=== PATIENT | male | born 1965 | race Caucasian/White ===

== ENCOUNTER 2017-09-06 05:55 | Day surgery (SDC) | payer OTHER ==
--- NOTE | 2017-09-05 17:48 | GHP ---
[f rep st] PREOP HISTORY AND PHYSICAL ADMISSION DIAGNOSIS: Left ureteral calculus. HISTORY OF PRESENT ILLNESS: This is a 52-year-old gentleman who had been seen originally in [facility] weeks ago and was noted to have an 8+ mm stone in the left mid ureter and he was discharged ho ms and came home and then had a repeat CAT [place] that showed he had a similar stone with hydronephrosis. He has denies any recent nausea, vomiting, or fevers and he has h ad a stone in the past the that he spontaneously passed, he thinks. PAST MEDICAL HISTORY: Positive for hypercholesterolemia, hydronephrosis, kidney stones. SURGICAL HISTORY: Knee surgery. MEDICATIONS: Atorvastatin, citalopram. ALLERGIES: Demerol, erythromycin, penicillin. FAMILY HISTORY: Heart disease. SOCIAL HISTORY: Alcohol consumption is noted. Former smoker. REVIEW OF SYSTEMS: Negative cardiac, respiratory, GI and endocrine. PHYSICAL EXAMINATION: VITAL SIGNS: Stable. CHEST: Clear. HEART: Regular rate and rhythm. ABDOM EN: Normal, no organomegaly, rebound or guarding. LOWER EXTREMITIES: Normal. I have reviewed his CAT scan and his laboratory values with him. He has mild right-sided nephrolithi asis. He has left ureterolithiasis with hydronephrosis. He also has atherosclerotic vascular diseas e based on the CAT scan findings and he has asymptomatic diverticulosis of the sigmoid colon. At the present time, he is admitted for ureteroscopic treatment of the stone. Indication, complications, o ptions have been discussed. Written and verbal consent have been obtained and he is admitted for the above procedure. /[id number]/MODL
[2017-09-06] MEDS ORDERED: LR 1,000 ML IV ONE (06:21)
[2017-09-06] MEDS ORDERED: KETOROLAC 30 MG/1 ML SDV ONE (06:51)
[2017-09-06] MEDS ORDERED: ONDANSETRON 4 MG/2 ML VIAL ONE (06:52)
[2017-09-06] MEDS ORDERED: PROPOFOL 200 MG/20 ML VIAL ONE (06:52)
[2017-09-06] MEDS ORDERED: fentaNYL 100 MCG/2 ML INJ ONE (06:52)
[2017-09-06] MEDS ORDERED: MIDAZOLAM 2 MG/2 ML VIAL ONE (06:52)
[2017-09-06] MEDS ORDERED: DEXAMETHASONE 4 MG/ML VIAL ONE (06:53)
[2017-09-06] MEDS ORDERED: IOPAMIDOL (ISOVUE-300) 150 ML BTL ONE (07:04)
[2017-09-06] MEDS ORDERED: ceFAZolin 2 GM/SWFI 2 GM/20 ML SYR IVP ONE (07:04)
--- NOTE | 2017-09-06 07:04 | PDHPUP ---
History & Physical Update H&P update statement: This history and physical update is based on an assessment of the patient which was completed after admission or registration (within 24 hours), but prior to the surgery/procedure. H&P update: H&P reviewed & patient examined, no change in patient's condition since H&P completed
[2017-09-06] MEDS ORDERED: LIDOCAINE 2% JELLY 20 ML (UROJECT) ONE (07:05)
[2017-09-06] MEDS ORDERED: BUPIVACAINE 0.25% 30 ML SDV ONE (07:13)
--- NOTE | 2017-09-06 07:16 | PDANEPAE ---
ANE History of Present Illness 52 yerar old male with PMH sigificant for Left kidney stone and hyperlipidemia. Otherwise healthy. He has had a small productive cough with no fever the last week. He does not smoke. He has had anesthesia in the past for right shoulder and knee surgery without complications. NPO appropriate, solids 19:00 and liquids 22:00 09/05/2017. ANE Past Medical History - Cardiovascular History Hx Hypertension: No Hx Arrhythmias: No Hx Chest Pain: No Hx Coronary Artery / Peripheral Vascular Disease: No Hx CHF / Valvular Disease: No Hx Palpitations: No - Pulmonary History Hx COPD: No Hx Asthma/Reactive Airway Disease: No Hx Recent Upper Respiratory Infection: No Hx Oxygen in Use at Home: No Hx Sleep Apnea: No - Neurologic History Hx Cerebrovascular Accident: No Hx Seizures: No Hx Dementia: No - Endocrine History Hx Diabetes: No - Renal History Hx Renal Disorders: No - Liver History Hx Hepatic Disorders: No - Neurological & Psychiatric Hx Hx Neurological and Psychiatric Disorders: No - Cancer History Hx Cancer: No - Congenital Disorder History Hx Congenital Disorders: No - GI History Hx Gastrointestinal Disorders: No - Surgical History Prior Surgeries: ACL reconstruction Right. R rotator cuff repair ANE Review of Systems Review of Systems: - Exercise capacity METS (RN): 6 METS ANE Patient History - Allergies Allergies/Adverse Reactions: erythromycin base Allergy (Verified 09/06/17 06:27) Rash meperidine [From Demerol] Allergy (Verified 09/06/17 06:26) Other-Enter Comments Penicillins Allergy (Verified 09/06/17 06:27) Rash - Home Medications Home Medications: Atorvastatin Calcium 09/06/17 [Last Taken 09/05/17 07:00] Citalopram [CeleXA 20 MG] 09/06/17 [Last Taken 09/05/17 07:00] - NPO status NPO Since - Liquids (Date): 09/05/17 NPO Since - Liquids (Time): 22:00 NPO Since - Solids (Date): 09/05/17 NPO Since - Solids (Time): 19:00 - Smoking Hx Smoking Status: Former smoker - Family Anes Hx Family Hx Anesthesia Complications: none ANE Labs/Vital Signs - Vital Signs Blood Pressure: 140/96 Heart Rate: 69 Respiratory Rate: 15 O2 Sat (%): 91 Height: 177.8 cm Weight: 83.461 kg ANE Physical Exam - Airway Neck exam: FROM, spinal fusion Mallampati Score: Class 1 Mouth exam: normal dental/mouth exam, poor dentition - Pulmonary Pulmonary: no respiratory distress - Cardiovascular Cardiovascular: regular rate and rhythym - ASA Status ASA Status: II (missing two lower teeth) ANE Anesthesia Plan Anesthesia Plan: GA w LMA
--- NOTE | 2017-09-06 08:29 | POSTOPPROG ---
Post Op Note Date of Operation: 09/06/17 Surgeon: Jadon Vance Anesthesia: GET(General Endotracheal) Pre-op Diagnosis: ureterolithiasis Post-op Diagnosis: same Indication: same Procedure: ureteroscopy stone removal Findings: stone Inf/Abcess present in the surg proc area at time of surgery?: No EBL: Minimal Total fluids administered: 600 Complications: none Drains: Other (stent) Specimen(s): stone sent, dictated
--- NOTE | 2017-09-06 08:46 | GOP ---
[f rep st] OPERATIVE REPORT DATE OF OPERATION: SURGEON: Jadon Vance MD PREOPERATIVE DIAGNOSIS: Left ureteral calculus with hydronephrosis. POSTOPERATIVE DIAGNOSIS: Left ureteral calculus with hydronephrosis. Proximal urethral stricture. PROCEDURE PERFORMED: Cystoscopy, retrograde ureteropyelogram, ureteroscopy, laser lithotripsy of the stone, placement of ureteral stent. FINDINGS: ureterolithiasis, hydronephrosis SPECIMENS: The stone sent for pathologic assessment. It appears to be a calcium oxalate stone. DESCRIPTION OF PROCEDURE: Gentleman had had general anesthesia, and after appropriate time-out, he had a cystoscopy that revealed a proximal urethral stricture that was dilated to accommodate a 22-Croat[place] scope, and then at that point the bladder had no tumor, stones, foreign bodies, or diverticula. The left ureteral orifice was cannulated with a Pollack catheter, and it revealed that he had a dilated ureter, and it appeared the stone had gone from mid ureter to distal ureter, so at that point, after passing a guidewire beyond the stone and dilating the intramural ureter with the anterior inner working aspect of the ureteral access sheath, semi-rigid scope went up to the stone that was in the distal ureter and fragmented with the holmium laser set at mode 10, marroquin 8. It was a 273 micron fiber, and a total of 589 joules were utilized to fragment the stone, and the stone fragments were extracted with the basket. At that point, I ureteroscoped up the renal pelvis and revealed no residual stones. He did have an ischemic area of the kidney, renal pelvis, and mucosa, though stone did not appear to be malignant, and so at that point, with the stone, hydronephrosis, and abnormalities found, I placed a 4.7 multilength stent , and under fluoroscopy it curled in the renal pelvis, curled in the bladder. Uro-Jet placed in the urethra and a 16 Garcia catheter placed. He will be discharged home without catheter to have the stent removed in a week. No complications encountered. /[id number]/MODL MTDD
[2017-09-06] MEDS ORDERED: fentaNYL 100 MCG/2 ML INJ IVP PRN (09:16)
[2017-09-06] MEDS ORDERED: LR 500 ML IV PRN (09:16)
[2017-09-06] MEDS ORDERED: NALOXONE HCL 0.4 MG/ML INJ IVP PRN (09:16)
[2017-09-06] MEDS ORDERED: OXYCODONE/APAP 5/325 TAB PO PRN (09:16)
[2017-09-06 09:35] VITALS: PULSE 61; RESP 16; TEMP 97.9; O2SAT 92
--- NOTE | 2017-09-06 10:26 | POSTANESTH ---
Post Anesthetic Evaluation Cardiovascular Status: Normal, Stable Respiratory Status: Normal, Stable Level of Consciousness/Mental Status: Can Participate in Eval Pain Control: Adequate, Prn Tx Ordered Nausea/Vomiting Control: Adequate, Prn Tx Ordered Complications Possibly Related to Anesthesia: None Noted
[2017-09-06 10:32] VITALS: BP 127/86
== END 2017-09-06 10:49 | disposition home or self-care (01) ==
LOC: FSGY 05:55
PROVIDERS: ATTEND Specialist
PROC: 0TF78ZZ Fragmentation in Left Ureter, Via Natural or Artificial Opening Endoscopic (ICD-10-PCS; principal; 2017-09-06 07:15)
PROC: 0T9780Z Drainage of Left Ureter with Drainage Device, Via Natural or Artificial Opening Endoscopic (ICD-10-PCS; principal; 2017-09-06 07:15)
DX: N13.2 Hydronephrosis with renal and ureteral calculous obstruction (principal); E78.00 Pure hypercholesterolemia, unspecified; Z87.442 Personal history of urinary calculi
CPT/HCPCS: 52356; 76001; C1758; C1769; C1894; 82365-90; C2625; J0690; J1100; J1885; J2250; J2405; J2704; J3010; Q9967